=== PATIENT | male | born 2000 | race Caucasian/White ===

== ENCOUNTER 2024-12-19 22:38 | Inpatient (IN) | payer OTHER, SELFPAY ==
[2024-12-19 18:37] VITALS: BP 129/89
--- NOTE | 2024-12-19 19:48 | ED.GENMED ---
History of Present Illness
General
Chief Complaint: Visual Problem
Time Seen by Provider: 12/19/24 19:48
History of Present Illness
History of Present Illness:
TIME OF INITIAL ENCOUNTER: 7:30 PM
HPI: Patient presents with painless loss of vision of the right eye 27 hours ago and was sent by a retina specialist in [place] to the ER for profound vision loss to the right eye. His mother has history of MS/optic neuritis. He was sent here
for further evaluation for the possibility of optic neuritis.
EXAM:
GENERAL: Well appearing in no distress
HEENT: Moist oral mucosa, right eye is light perception only, both pupils are markedly dilated (patient just had dilated eye exam), no disconjugate gaze
CARDIOVASCULAR: No murmurs, normal heart rate, regular rhythm, No chest wall tenderness
PULMONARY: No respiratory distress, breath sounds are clear and equal
ABDOMEN: Soft with no peritoneal signs, no tenderness
NEUROLOGIC: Excellent strength all extremities, no coordination deficits
PSYCHIATRIC: Appropriate mental status, normal insight and judgement
EXTREMITIES: Nontender, no edema, moves all extremities equally
SKIN: No rash, no lesions
NUMBER AND COMPLEXITY OF PROBLEMS ADDRESSED AT THE ENCOUNTER
� Chronic conditions affecting care: No past medical history
� Acute Exacerbation and/or Progression of Chronic Illness: This is an acute problem
� Differential Diagnosis includes: Central retinal artery occlusion, central retinal venous occlusion, optic neuritis, MS
AMOUNT AND/OR COMPLEXITY OF DATA TO BE REVIEWED AND ANALYZED
� I performed an independent evaluation of and my interpretation is:
EKG:
CT:
X-rays:
Laboratory Studies: Sed rate and CRP are both normal, CBC and chemistries also unremarkable
Other: I reviewed MRI report and also personally viewed images which shows multiple bilateral supra and infratentorial white matter foci of increased signal intensity the largest of which is near the left lateral ventral
� Review of other/old records: No old records available for review in [facility]
� Clinical information was obtained by an independent historian: Spoke to the mother at bedside who had a similar presentation and she was diagnosed with MS
� Prescriptions/Medications Considered but not given:
� Further testing considered but not performed:
RISK OF COMPLICATIONS AND/OR MORBIDITY OR MORTALITY OF PATIENT MANAGEMENT
� Social determinants of health affecting care: Lives at home
� Discussion with other providers: At 8 PM, I notified Dr. Mccain and requested MRI. I also spoke to Dr. Wong who recommends IV Solu-Medrol 1 g; Dr. Peña for admission
� Escalation of care including admission/observation vs risk of discharge considered: MRI is abnormal. He was empirically given high dose steroids as recommended by Dr. Wong.
ANY OTHER UPDATES:
Phy Exam
Physical Exam
Physical Exam:
See HPI
Course
Orders/Labs/Results
Orders:
Orders
12/19/24 Dinner
Regular
At Your Request: Full Participation
12/19/24 20:15
MRI Brain [MR Brain W/o & With Contrast] Urgent
Comment:
Reason For Exam: eval for optic neuritis; I notified Kalyn
Recent pill cam endoscopy?: No
12/19/24 20:24
MethylPREDNISolone. [Solu-Medrol] 1,000 mg 0.9% Sodium Chloride 250 ml [Nss] 250 ml IV NOW
12/19/24 20:33
Basic Metabolic Panel Urgent
CRP [C-Reactive Protein] Urgent
Complete Blood Count/With Diff Urgent
ESR [Erythrocyte Sed Rate] Urgent
12/19/24 22:03
Admit/Transfer Patient As Directed
Co-Sign Provider:
Level of Care: Inpatient admission
Assign to:: Medical/Surgical
Physician / Group: Mariana
Diagnosis: Right eye vision loss
Reason for Hospitalization: right eye vision loss
Expected length of stay greater than two midnights?: Yes
ELOS- Estimated Length of Stay in days: 2
I certify the patient meets the requirements for IP care: Yes
PRN Pain Medication Management As Directed
May give lesser potent ordered pain med per pt: Yes
preference::
Protocol:: Medication orders for pain may be administered in a
manner that supports deferring to patient preference
when the pt is:
- Requesting an ordered lesser potent pain medication.
Least to most potent pain medications are defined
as: acetaminophen < NSAID < tramadol < opioids
(morphine, oxycodone, hydromorphone).
- Requesting a lesser dose of the same medication IF
ORDERED.
- Requesting a less intrusive route of administration
if both routes are prescribed by the provider (PO <
IV).
12/19/24 22:04
Code Status As Directed
Resuscitation Status: Full Code
12/19/24 23:14
Acetaminophen [Tylenol] 650 mg PO Q4HPRN PRN
Docusate W/Senna [Senokot-S] 1 tablet PO BIDPRN PRN
Mag Hydrox/Al Hydrox/Simeth [Maalox] 30 ml PO Q6HPRN PRN
Ondansetron Injectable [Zofran] 4 mg IV Q6HPRN PRN
Oxycodone [Roxicodone] 5 mg PO Q4HPRN PRN
Polyethylene Glycol Powder [Miralax] 17 grams PO DAILYPRN PRN
12/19/24 23:14
NEUROLOGY CONSULT Routine
Consulting Provider: Hamilton Wong
Was physician already notified: Yes
Activity As Directed
Activity Level: As Tolerated
Pneumatic Compression Sleeves As Directed
Type: Knee high
Vital Signs As Directed
Frequency: Per unit guidelines
DX Deep Vein Thrombosis Video Routine
12/20/24 08:00
Cetirizine HCl [Zyrtec] 10 mg PO DAILY
Abnormal Lab Results
12/19/24
20:33
Abs Immat Gran (auto) 0.1 H 10^3/uL
(0-0.05)
Absolute Neuts (auto) 7.0 H 10^3/uL
(1.4-6.5)
Immature Gran % 0.7 H %
(0-0.5)
12/19/24 20:33
12/19/24 20:33
Vital Signs
Initial and Last Documented VS:
Initial Vital Signs
Temp Pulse Resp BP Pulse Ox
36.6 C 92 18 129/89 98
12/19/24 18:37 12/19/24 18:37 12/19/24 18:37 12/19/24 18:37 12/19/24 18:37
Last Documented Vital Signs
Temp Pulse Resp BP Pulse Ox
36.9 C 80 20 123/73 97
12/19/24 23:21 12/19/24 23:21 12/19/24 23:21 12/19/24 23:21 12/19/24 23:21
*Critical Care Note
Total Time (30-74mins, 75-104mins- exclusive of procedures): Not Applicable
ED Attending Note
-
Portions of this chart may have been created with voice recognition software.� Occasional wrong word or��sound alike� substitutions may have occurred due to the inherent limitations of voice recognition software.
Discharge Plan
Departure
Patient Disposition: Admit
Presentation/result/management discussed w/ accepting MD/DO: Hospitalist
Discharge Problem:
Severe vision loss of one eye
Interventions
Interventions:
*Risk Screen - Suicide Last Done: 12/19/24 23:26
*General Assessment Last Done: 12/19/24 20:32
*Neglect/Abuse Screening Last Done: 12/19/24 18:37
*ED- Fall Risk Assessment Last Done: 12/19/24 20:32
*ED COVID-19 Vaccine History Last Done: 12/19/24 23:26
*Nursing Disposition Last Done: 12/19/24 23:15
ED- Neurological Assessment Last Done: 12/19/24 20:32
ED-EENT Assessment Last Done: 12/19/24 20:32
Discharge Date and Time
Discharge Date/Time: 12/19/24 23:15
[2024-12-19 20:32] VITALS: BMI 28.9
[2024-12-19 20:34] VITALS: BP 123/86
[2024-12-19 20:47] LABS: % Basophils 0.8 % (0-2); % Eosinophils 3.1 % (0-6); % Immature Granulocytes 0.7 % (0-0.5); % Lymphocytes 21.8 % (20.5-51.1); % Monocytes 5.6 % (1.7-9.3); Absolute Basophils 0.1 10^3/uL (0-0.2); Absolute Eosinophils 0.3 10^3/uL (0-0.7); Absolute Immature Granulocytes 0.1 10^3/uL (0-0.05); Absolute Lymphocytes 2.3 10^3/uL (1.2-3.4); Absolute Monocytes 0.6 10^3/uL (0.1-0.6); Hematocrit 41.9 % (39.0-52.0); Hemoglobin 14.4 g/dL (13.0-18.0); Mean Corp Hgb Conc. 34.4 g/dL (33.0-37.0); Mean Corpuscular Hgb 29.4 pg (27.0-31.0); Mean Corpuscular Volume 85.5 fL (80.0-94.0); Mean Platelet Volume 10.2 fL (7.4-10.4); Nucleated Red Blood Cells % 0 % (-); Platelet Count 283 10^3/uL (130-400); Red Cell Dist. Width 11.9 % (11.5-14.5); White Blood Cell Count 10.4 10^3/uL (4.8-10.8)
[2024-12-19 20:53] LABS: Erythrocyte Sed Rate 2 mm/hour (0-20)
[2024-12-19 21:01] LABS: Blood Urea Nitrogen 12 mg/dl (9-20); Calcium 9.6 mg/dl (8.4-10.2); Carbon Dioxide 27 mmol/L (22-30); Chloride 107 mmol/L (98-107); Estimated Creatinine Clearance 116 ml/min; Glucose 95 mg/dl (70-99); Potassium 4.1 mmol/L (3.5-5.1); Sodium 143 mmol/L (135-145); eGFR > 60.00
[2024-12-19] MEDS: SOLU-MEDROL 258 MG IV (21:46)
[2024-12-19 21:47] VITALS: BP 138/83
--- NOTE | 2024-12-19 21:54 | HPS.HSE ---
Family Physician
-
Family Physician: * NONE
Chief Complaint
-
Right eye vision loss
History of Present Illness
This is a 24-year-old with no known significant past medical history presenting to the emergency department with right eye vision loss that started on arousal this a.m.
Patient reported that when he arose this a.m. he had a mild headache but otherwise was asymptomatic. When opening his eyes he looks like he right eyelid was covered. There was no vision abnormality in his left eye. He reports that there was no
improvement since then. However currently now he states that there is some mild vision in his right lower peripheral visual field. He denies any numbness or tingling. He denies any facial asymmetry. He denies any weakness. He denies any prior
episodes.
Patient was seen by retinal specialist this afternoon ([facility], Dr. Cami Foley). Noted to have profound loss of vision in the right eye. No acute intraocular pathology. Patient sent for urgent neuroimaging with concern for optic
neuritis.
Mother reports she had history of optic neuritis treated with IV steroids twice.
In the emergency department patient was afebrile, blood pressure was 120/85 with a pulse of 100 and satting 99% on room air. His labs are completely pristine, normal CBC, normal electrolytes, normal BUN and creatinine. ESR and CRP were normal.
Medical History
Past Medical History
Past Medical History: Reports None
Past Surgical History: Reports None
Social History
Tobacco: Non-smoker
Alcohol: Occasional
Drug: None
Personal: Single
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
Family History
Family History: Hypertension
Allergies / Home Medications
Allergies reflects when Allergies were last updated in [email or web address].
Home Medications with original date entered in [email or web address]
Allergy/Medication List:
Allergies
Allergy/AdvReac Type Severity Reaction Status Date / Time
diphenhydramine Allergy passed out Verified 12/19/24 20:23
[From Benadryl]
Home Medications
cetirizine 10 mg tablet (Zyrtec) 10 mg PO DAILY 12/19/24
Review of Systems
-
History Source: Patient
Constitutional: Reports No Symptoms
EENT: Reports No Symptoms
Respiratory: Reports No Symptoms
Cardiac: Reports No Symptoms
Abdomen/GI: Reports No Symptoms
: Reports No Symptoms
Musculoskeletal: Reports No Symptoms
Skin: Reports No Symptoms
Neurological: Reports Other (Right eye vision loss)
Endocrine: Reports No Symptoms
Hematologic/Lymphatic: Reports No Symptoms
Psych: Reports No Symptoms
Physical Exam
Vital Signs
Vital Signs
Temp Pulse Resp BP Pulse Ox
98 F 86 18 138/83 99
12/19/24 18:37 12/19/24 20:41 12/19/24 20:41 12/19/24 21:47 12/19/24 21:47
Physical Exam
General: Well Developed, Well Nourished, No Apparent Distress and Comfortable
HEENT: NormoCephalic, Anicteric, Moist mucous membranes, Atraumatic and Other (Extraocular movements intact and conjugate)
Respiratory: Clear
Cardiac: S1/S2
Breast: Deferred by me
GI: Soft, Non Tender, Non Distended and Normal Bowel Sounds
Rectal: Deferred by Provider
Genito-urinary: Deferred by me
Musculoskeletal: No Clubbing, No Cyanosis and No Edema
Skin: Warm
Neuro: AO x 3, No Motor Deficits and Other (Similar dilation, Afferent pupillary defect on the Right eye. )
Psych: Calm
Laboratory Results
-
12/19/24 20:33
12/19/24 20:33
Data Reviewed
-
Lab Data: Labs Reviewed by me
Old Records: Reviewed
Impression/Plan
-
IMPRESSION:
24 year-old with 1 day history of acute right eye vision loss. No other symptoms. Seen by retinal specialist today with no intraocular pathology. No other focal neurological deficits. Family history of optic neuritis in mother. ESR and CRP are
negative. Rest of his labs are completely normal. MRI is pending.
Given patient's concern for optic neuritis and otherwise generally well status plan is to start IV Solu-Medrol. MRI may have findings that are consistent with MS and that we will support the diagnosis of optic neuritis.
- admit to med/surg
- solumedrol 1g IV now., neurology to write for a toal of about 5 doses
- serial examinations
- serologies, invasive diagnostic testing per neurology
- regular diet
- neurology consultation
DVT PPX - SCDs
Code status - full code
[2024-12-19 22:00] VITALS: BP 132/87
[2024-12-19 23:00] VITALS: BP 117/68
[2024-12-19 23:21] VITALS: BP 123/73; BMI 28.1
--- NOTE | 2024-12-19 23:30 | PTCARENOTE ---
Pt arrived to room 415-01. Pt ambulated from wheelchair to bed. Pt AAOx3, VSS. Pt c/o visual loss right eye. Pt oriented to room, call javed placed within reach.
[2024-12-20 07:41] VITALS: BP 113/73
--- NOTE | 2024-12-20 08:39 | W.PN.HOSP.TC ---
Today's Communication/Plan
-
Continue IV steroid
Assessment / Plan
Assessment / Plan
Impression:
24 year-old with 1 day history of acute right eye vision loss. No other symptoms. Seen by retinal specialist [place] with no intraocular pathology. No other focal neurological deficits. Family history of optic neuritis in mother. ESR and CRP are
negative. Rest of his labs are completely normal.
MRI with and without contrast shows:
Mild white matter leukoaraiosis, without enhancement, as described. Consider multiple sclerosis.
Findings have also been associated with nonspecific gliosis, chronic ischemic change (unlikely given patient age), Lyme disease, vasculitis, migraine headaches.
No MR evidence to suggest optic neuritis.
No acute infarct.
No abnormal enhancement.
Neurology consulted, recommended MRI cervical spine/lumbar/thoracic and consider lumbar puncture.
Assessment/plan:
Acute right eye vision loss.
Concern of optic neuritis.
Negative ESR/CRP.
MRI brain with and without contrast shows:
Mild white matter leukoaraiosis, without enhancement, as described. Consider multiple sclerosis.
Findings have also been associated with nonspecific gliosis, chronic ischemic change (unlikely given patient age), Lyme disease, vasculitis, migraine headaches.
No MR evidence to suggest optic neuritis.
No acute infarct.
No abnormal enhancement.
Neurology consulted, recommended MRI cervical spine/lumbar/thoracic
MRI cervical/thoracic spine showed:
Signal alteration in the left lateral cervical spinal cord at the C3 and C5 levels are considered suspicious for demyelination. No MRI evidence for active demyelination.
No evidence for demyelination of the thoracic spinal cord
Continue steroid as ordered by neurology
Consider lumbar puncture.
CODE STATUS: Full code
DVT prophylaxis: SCDs
Diet: Regular diet
Total time spent on today's encounter was 65 minutes which included time spent in counseling the patient/family regarding diagnosis and treatment plan as listed above, goals of care, and symptom management. Case was discussed with nursing staff,
specialists, and care coordinators/case management. All labs and imaging personally reviewed by me. Remainder the time spent in detailed review of previous records, lab data, imaging, and other medical provider documentation.
Anticipated Discharge: > 48 hours
Subjective/Interval History
-
Date of Service: December 20, 2024
Patient seen and examined at bedside, parents at bedside.
Patient still having right eye vision loss but otherwise denies any chest pain or shortness of breath, no abdominal pain, no nausea, no vomiting, no diarrhea or constipation.
Objective Data
-
Labs:
Laboratory Results
12/19/24
20:33
WBC 10.4
Hgb 14.4
Hct 41.9
Plt Count 283
Sodium 143
Potassium 4.1
Chloride 107
Carbon Dioxide 27
BUN 12
Creatinine 1.0
Glucose 95
Calcium 9.6
Vital Signs:
Vital Signs
Temp Pulse Resp BP Pulse Ox
98.3 F 68 18 113/73 98
12/20/24 07:41 12/20/24 07:41 12/20/24 07:41 12/20/24 07:41 12/20/24 07:41
Physical Exam
-
General: Well Developed, Well Nourished, No Apparent Distress and Comfortable
HEENT: Normocephalic, Atraumatic, Moist Mucous Membranes, No Ptosis, PERRLA, Nose Appears Normal and Other (Loss of vision right eye)
Respiratory: Clear to Auscultation and Non Labored Respirations
Cardiac: Regular Rhythm and S1/S2
Breast: Deferred by me
GI: Soft, Nontender, Nondistended and Normal Bowel Sounds
Genito-urinary: No Costovertebral Tender
Musculoskeletal: No Clubbing, No Cyanosis and No Edema
Skin: Warm
Neuro: Awake, Alert, Oriented, AO x 3 and No Motor Deficits
Psych: Calm
Data Reviewed
-
Diagnostic Radiology: Image personally visualized and interpreted and Report Reviewed by me
CT Scan: Image personally visualized and interpreted and Report Reviewed by me
Ultrasound: Image personally visualized and interpreted and Report Reviewed by me
MRI: Image personally visualized and interpreted and Report Reviewed by me
Medical Tests (Nuc Med, Echo etc): Image personally visualized and interpreted and Report Reviewed by me
Labs: Labs Reviewed by me
Old Records: Reviewed
--- NOTE | 2024-12-20 10:21 | CON.NEURO ---
Addendum entered and electronically signed by Hamilton Wong MD 12/20/24 15:48:
.
Original Note:
Neuro Assessment/Plan
Assessment
Abrupt change in vision in the right eye:
ddx optic neuritis despite MRI of orbit negative MRI, Multiple Sclerosis (MS), migraine with aura (or ophthalmic migraine)
highly unlikely to be branch retinal artery occlusion for painless visual loss based on age/lack of risk factors
Plan
check MRI of entire spine with and without to determine if sclerosis lesions present and if enhancing
check blood work for possible metabolic mimics for MS
total dosing of methylprednisolone 1 g IV will be 5 doses, patient received 1 dose on 12/19/2024
Consider lumbar puncture if patient does not have enhancing lesions in brain or spine in hopes of determining if oligoclonal bands are present and if so that would meet criteria for dissemination in time which is needed for the diagnosis of
multiple sclerosis
Provide H2 barby
Goal of normoglycemia
Follow blood pressures, goal of normotension
outpatient optical coherent tomography (OCT) with ophthalmology
Occupational therapy evaluation
We will follow
Consultation
Order
Date of Consultation: 12/20/24
Requesting Provider: Hospitalists
Reason for Consult: Loss of vision in right eye
Subjective/Objective
Subjective Data
Date of Service: December 20, 2024
Right handed
Patient presented to this [facility]'s emergency department yesterday evening approximately 24 hours after onset of painless vision loss in the right eye. The patient awoke with mild headache and noted visual loss in the right eye which involved
nearly the entire vision of the right eye with the exception of a crescent shape involving the bottom portion of his visual field. There is no involvement of the left eye. The patient's headache has been intermittent and is not present today
despite an absence of change in visual loss in the right eye. Typical headaches are not involved with photophobia or phonophobia and last for up to 6 hours without requiring medication for therapy.
Patient was subsequently seen after onset of symptoms by a retinologist in [place] at which time it was suggested that there were no abnormalities despite dilated exam. The patient was then instructed to report to this hospital's emergency
department for further evaluation and treatment. While in the emergency department, the patient received a dose of methylprednisolone 1 g IV.
No known modifying factors. No prior episodes which were similar.
Objective Data
Vital Signs
Temp Pulse Resp BP Pulse Ox
36.8 C 68 18 113/73 98
12/20/24 07:41 12/20/24 07:41 12/20/24 07:41 12/20/24 07:41 12/20/24 07:41
Lab Results
12/19/24 20:33
12/19/24 20:33
Sodium 143 mmol/L (135-145) 12/19/24 20:33
Potassium 4.1 mmol/L (3.5-5.1) 12/19/24 20:33
BUN 12 mg/dl (9-20) 12/19/24 20:33
Glucose 95 mg/dl (70-99) 12/19/24 20:33
Calcium 9.6 mg/dl (8.4-10.2) 12/19/24 20:33
Patient Allergies
diphenhydramine [From Benadryl] Allergy (Verified 12/19/24 20:23)
passed out
Review of Systems
-
History Source: Patient
All other systems: Reviewed and negative
EENT: Decreased Vision; Negative Swallowing Difficulty
Respiratory: Negative Trouble Breathing
Cardiac: Negative Chest Pain
Abdomen/GI: Negative Incontinence of Stool
Genitourinary: Negative Incontinence
Musculoskeletal: Negative Back Pain or Neck Pain
Neuro: Negative Dizzy or Headache
Physical Exam
-
General: No Apparent Distress and Appears Stated Age
Eyes: OU Absent Papilledema, Round OU, [place] Conjunctivae and No Ptosis
HEENT: Anicteric and Moist Mucous Membranes
Neck: Full Range of Motion
Respiratory: No Dyspnea
Cardiac: No JVD
GI: Non-distended
Skin: Unremarkable
Extremities: No Clubbing, No Cyanosis and No Edema
Psych: Intact Judgement/Insight
Extended Neurological Exam
Mood & Affect: Mood Unremarkable and Affect Unremarkable
Attention Span & Concentration: Awake, Alert, Interactive and No Difficulty with 2 Step Request
Memory: Unremarkable
Tremor: Hand Tremor Absent and Head Tremor Absent
Speech: Quality Unremarkable and Quantity Unremarkable
Cranial Nerve II: Left Eye: Pupillary Reactivity Unremarkable, Pupillary Size Unremarkable and Visual Garcia Intact
Cranial Nerve II: Right Eye: Pupillary Size Unremarkable, Visual Garcia Reduced (To finger movement evaluation down to [place] shaped area of the right visual field) and Other (Questionable right APD)
Cranial Nerves III, IV, : Extraocular Movement: Extraocular Movement Full in all Directions
Cranial Nerve VII: Facial Symmetry: Normal Facial Symmetry
Cranial Nerve VIII: Hearing: Unremarkable Hearing to Normal Conversational Volume
Cranial Nerves IX, X: Palate Movement: Palate Elevation Symmetric
Cranial Nerve XI: Shoulder Shrug: Unremarkable
Cranial Nerve XII: Tongue Protusion: Midline
Muscle Strength, Overall: Full Throughout
Muscle Bulk & Tone: Bulk Unremarkable and Tone Unremarkable
Pronator Drift: No Drift in Upper Extremities
Deep Tendon Reflexes: Unremarkable Throughout
Cold Sensation: Unremarkable
Vibration Sensation: Testing in Upper Extremities and Unremarkable
Touch Sensation: Unremarkable
Coordination: Axwjdt-[id number]-[id number] Testing Unremarkable
Babinski Sign: Absent Bilaterally
Data Reviewed
-
MRI Head: Report Reviewed and Image Reviewed
MRI Cervical Spine: Image Reviewed
MRI Thoracic Spine: Image Reviewed
MRI Lumbar Spine: Pending
Labs: Ordered, Pending and Report Reviewed
Reviewed with: Physician, Patient and Family
Old Records: Summarized
Medications
-
Active Medications
Generic Name Dose Route Start Last Admin
Trade Name Freq PRN Reason Stop Dose Admin
Acetaminophen 650 mg 12/19/24 23:14
Acetaminophen 325 Mg Tablet PO 01/16/25 23:13
Q4HPRN PRN
mild pain/BRADEN/temp> 100.4F
Al Hydrox/Mg Hydrox/Simethicone 30 ml 12/19/24 23:14
Mag/Al/Simethicone Suspension 30 Ml Cup PO 01/16/25 23:13
Q6HPRN PRN
Heartburn
Cetirizine HCl 10 mg 12/20/24 08:00 12/20/24 08:20
Cetirizine Hcl 10 Mg Tablet PO 01/17/25 07:59 Not Given
DAILY DAMARIS
Methylprednisolone Sodium 258 mls @ 258 mls/hr 12/20/24 10:00
Succinate 1,000 mg/ Sodium IV 12/23/24 09:59
Chloride Q24H DAMARIS
Ondansetron HCl 4 mg 12/19/24 23:14
Ondansetron 4 Mg/2 Ml Vial IV 01/16/25 23:13
Q6HPRN PRN
nausea and vomiting
Oxycodone HCl 5 mg 12/19/24 23:14
Oxycodone 5 Mg Regular Release Tablet PO 01/02/25 23:13
Q4HPRN PRN
moderate pain
Polyethylene Glycol 17 grams 12/19/24 23:14
Polyethylene Glycol Powder 17 Grams Packet PO 01/16/25 23:13
DAILYPRN PRN
constipation
Senna/Docusate Sodium 1 tablet 12/19/24 23:14
Docusate W/Senna (Umu-Colace) Tablet PO 01/16/25 23:13
BIDPRN PRN
constipation
Sodium Chloride 0 flush 12/19/24 23:00
Sodium Chloride 0.9% (Flush) Syringe IV 01/16/25 22:59
PER PROTOCOL DAMARIS
Home Medications
�Medication �Instructions �Recorded
cetirizine 10 mg tablet (Zyrtec) 10 mg PO DAILY Allergies 12/19/24
Past History
Past History
ED Past Medical History: None
ED Past Surgical History: None
Social History
Tobacco: Non-smoker
Alcohol: None
Personal: Single
Family History
Family History: Other (Mother with history of multiple sclerosis)
[2024-12-20 10:49] LABS: Vitamin D, 25-OH*** 26.9 ng/mL (30-80)
[2024-12-20 11:02] LABS: Ferritin 82.9 ng/ml (17.9-464.0)
[2024-12-20 11:34] LABS: Folate 8.3 ng/ml (2.76-20); Vitamin B12 298 pg/ml (239-931)
[2024-12-20] MEDS: SOLU-MEDROL 258 MG IV (11:47)
[2024-12-20 13:23] LABS: Lyme Antibody Screen, EIA Negative (Negative)
[2024-12-20 14:03] LABS: INR 1.08; PT 14.5 Sec (11.4-14.6)
--- NOTE | 2024-12-20 14:40 | CM ---
Patient seen bedside, initial assessment completed. Patient is a 24-year-old with no known significant past medical history presenting to the emergency department with right eye vision loss.
Patient resides w/ parents in a single story home- 5 steps to enter. Independent w/ ambulating and ADLs, no DME.
Address, point of contact and insurance verified. Patient confirms he has nooked, does not have insurance card w/ him.
PCP: Patient does not have a current PCP, per patient he doesn't get seen annually so he is no longer a patient w/ his prev PCP. Patient agreeable to residency clinic information, CM provided.
Pharmacy: [facility] [place]
Plan: Home, no needs
[2024-12-20 15:31] VITALS: BP 111/73
[2024-12-20] MEDS: DRISDOL (VITAMIN D2) 50000 UNITS PO (17:31)
[2024-12-20] MEDS: VITAMIN B-12 1000 MCG PO (17:31)
[2024-12-20 23:15] VITALS: BP 111/71
[2024-12-21 07:00] VITALS: BP 104/66
--- NOTE | 2024-12-21 07:30 | W.PN.NEURO.1 ---
Today's Communication / Plan
-
Await blood work for possible metabolic mimics for MS
Check lumbar puncture for clarity regarding the possibility of multiple sclerosis, reviewed with patient and family
total dosing of methylprednisolone 1 g IV will be 5 doses, patient received first dose on 12/19/2024
Neuro Assessment/Plan
Assessment
Abrupt change in vision in the right eye:
ddx optic neuritis despite MRI of orbit negative MRI, Multiple Sclerosis (MS) especially suggested based on demyelinating lesions at C3 and C5 although not enhancing
highly unlikely to be branch retinal artery occlusion for painless visual loss based on age/lack of risk factors
Additional diagnoses of vitamin B12 deficiency and vitamin D deficiency
Plan
Await blood work for possible metabolic mimics for MS
Check lumbar puncture for clarity regarding the possibility of multiple sclerosis, reviewed with patient and family
total dosing of methylprednisolone 1 g IV will be 5 doses, patient received first dose on 12/19/2024
Continue newly initiated cyanocobalamin replacement, lifelong with 1000 mcg daily
Vitamin D replacement with both vitamin D2 50,000 units weekly for total of 8 doses and vitamin D3 2000 international units daily, lifelong
Goal of normoglycemia
Follow blood pressures, goal of normotension
outpatient optical coherent tomography (OCT) with ophthalmology
Occupational therapy evaluation
We will follow
Subjective/Objective
Subjective Data
Date of Service: December 21, 2024
Vision is worse in the right since last night.
Objective Data
Vital Signs
Temp Pulse Resp BP Pulse Ox
36.9 C 86 20 111/71 96
12/20/24 23:15 12/20/24 23:15 12/20/24 23:15 12/20/24 23:15 12/20/24 23:15
PT 14.5 Sec (11.4-14.6) 12/20/24 13:46
INR 1.08 12/20/24 13:46
Sodium 143 mmol/L (135-145) 12/19/24 20:33
Potassium 4.1 mmol/L (3.5-5.1) 12/19/24 20:33
BUN 12 mg/dl (9-20) 12/19/24 20:33
Glucose 95 mg/dl (70-99) 12/19/24 20:33
Calcium 9.6 mg/dl (8.4-10.2) 12/19/24 20:33
Vitamin B12 298 pg/ml (239-931) 12/20/24 08:29
Patient Allergies
diphenhydramine [From Benadryl] Allergy (Verified 12/19/24 20:23)
passed out
Review of Systems
-
History Source: Patient
All other systems: Reviewed and negative
EENT: Decreased Vision; Negative Swallowing Difficulty
Respiratory: Negative Trouble Breathing
Cardiac: Negative Chest Pain
Abdomen/GI: Constipated; Negative Incontinence of Stool
Genitourinary: Negative Incontinence
Musculoskeletal: Negative Back Pain or Neck Pain
Neuro: Negative Dizzy or Headache
Physical Exam
-
General: No Apparent Distress and Appears Stated Age
Eyes: Round OU, [place] Conjunctivae and No Ptosis
HEENT: Anicteric and Moist Mucous Membranes
Neck: Full Range of Motion
Respiratory: No Dyspnea
Cardiac: No JVD
GI: Non-distended
Skin: Unremarkable
Extremities: No Clubbing, No Cyanosis and No Edema
Psych: Intact Judgement/Insight
Extended Neurological Exam
Mood & Affect: Mood Unremarkable and Affect Unremarkable
Attention Span & Concentration: Awake, Alert and Interactive
Memory: Unremarkable
Tremor: Hand Tremor Absent and Head Tremor Absent
Speech: Quality Unremarkable and Quantity Unremarkable
Cranial Nerve II: Left Eye: Pupillary Reactivity Unremarkable, Pupillary Size Unremarkable and Visual Garcia Grossly Intact
Cranial Nerve II: Right Eye: Pupillary Size Unremarkable and No Vision; Negative Pupillary Reactivity Unremarkable (Question of APD)
Cranial Nerves III, IV, : Extraocular Movement: Extraocular Movement Full in all Directions
Cranial Nerve VII: Facial Symmetry: Normal Facial Symmetry
Cranial Nerve VIII: Hearing: Unremarkable Hearing to Normal Conversational Volume
Cranial Nerves IX, X: Palate Movement: Palate Elevation Symmetric
Cranial Nerve XI: Shoulder Shrug: Unremarkable
Cranial Nerve XII: Tongue Protusion: Midline
Muscle Bulk & Tone: Bulk Unremarkable and Tone Unremarkable
Pronator Drift: No Drift in Upper Extremities
Touch Sensation: Unremarkable
Coordination: [id number] Testing Unremarkable
Data Reviewed
-
MRI Head: Report Reviewed and Image Reviewed
MRI Cervical Spine: Report Reviewed and Image Reviewed
MRI Thoracic Spine: Report Reviewed and Image Reviewed
MRI Lumbar Spine: Report Reviewed
Labs: Pending and Report Reviewed
Reviewed with: Physician, Patient and Family
Old Records: Summarized
Past History
Past History
ED Past Medical History: Other (Lyme disease age 8)
ED Past Surgical History: None
Social History
Tobacco: Non-smoker
Alcohol: None
Personal: Single
Employment: Employed
Family History
Family History: Other (Mother with history of multiple sclerosis)
Medications
-
Medications:
Generic Name Dose Route Start Last Admin
Trade Name Freq PRN Reason Stop Dose Admin
Acetaminophen 650 mg 12/19/24 23:14
Acetaminophen 325 Mg Tablet PO 01/16/25 23:13
Q4HPRN PRN
mild pain/BRADEN/temp> 100.4F
Al Hydrox/Mg Hydrox/Simethicone 30 ml 12/19/24 23:14
Mag/Al/Simethicone Suspension 30 Ml Cup PO 01/16/25 23:13
Q6HPRN PRN
Heartburn
Cetirizine HCl 10 mg 12/20/24 08:00 12/21/24 10:55
Cetirizine Hcl 10 Mg Tablet PO 01/17/25 07:59 Not Given
DAILY DAMARIS
Cholecalciferol 125 mcg 12/21/24 08:00 12/21/24 10:58
Cholecalciferol (Vitamin D3) 125 Mcg Tablet (5,000 Units) PO 01/18/25 07:59 125 mcg
DAILY DAMARIS Administration
Cyanocobalamin 1,000 mcg 12/20/24 17:00 12/21/24 10:58
Cyanocobalamin 1,000 Mcg Tablet PO 01/17/25 16:59 1,000 mcg
DAILY DAMARIS Administration
Ergocalciferol 50,000 units 12/20/24 17:00 12/20/24 17:31
Ergocalciferol (Vitamin D-2) 67407 Units Capsule PO 01/17/25 16:59 50,000 units
Q7D DAMARIS Administration
Methylprednisolone Sodium 258 mls @ 258 mls/hr 12/20/24 10:00 12/21/24 10:58
Succinate 1,000 mg/ Sodium IV 12/23/24 09:59 258 mls
Chloride Q24H DAMARIS Administration
Lorazepam 1 mg 12/21/24 07:33
Lorazepam 1 Mg Tablet PO
ONCE PRN
SEE LABEL COMMENTS
Ondansetron HCl 4 mg 12/19/24 23:14
Ondansetron 4 Mg/2 Ml Vial IV 01/16/25 23:13
Q6HPRN PRN
nausea and vomiting
Polyethylene Glycol 17 grams 12/19/24 23:14
Polyethylene Glycol Powder 17 Grams Packet PO 01/16/25 23:13
DAILYPRN PRN
constipation
Senna/Docusate Sodium 1 tablet 12/21/24 14:53
Docusate W/Senna (Umu-Colace) Tablet PO 01/16/25 23:13
BIDPRN PRN
no BM > 24 hours
Sodium Chloride 0 flush 12/19/24 23:00
Sodium Chloride 0.9% (Flush) Syringe IV 01/16/25 22:59
PER PROTOCOL DAMARIS
[2024-12-21 08:36] LABS: Hematocrit 38.3 % (39.0-52.0); Hemoglobin 13.3 g/dL (13.0-18.0); Mean Corp Hgb Conc. 34.7 g/dL (33.0-37.0); Mean Corpuscular Hgb 29.4 pg (27.0-31.0); Mean Corpuscular Volume 84.7 fL (80.0-94.0); Mean Platelet Volume 11.4 fL (7.4-10.4); Platelet Count 272 10^3/uL (130-400); Red Blood Cell Count 4.52 10^6/uL (4.70-6.10); Red Cell Dist. Width 11.9 % (11.5-14.5); White Blood Cell Count 21.6 10^3/uL (4.8-10.8)
[2024-12-21 10:31] LABS: Blood Urea Nitrogen 14 mg/dl (9-20); Calcium 9.4 mg/dl (8.4-10.2); Carbon Dioxide 21 mmol/L (22-30); Chloride 105 mmol/L (98-107); Estimated Creatinine Clearance > 125 ml/min; Glucose 129 mg/dl (70-99); Potassium 4.3 mmol/L (3.5-5.1); Sodium 140 mmol/L (135-145); eGFR > 60.00
[2024-12-21] MEDS: VITAMIN D3 (cholecalciferol) 125 MCG PO (10:58)
[2024-12-21] MEDS: VITAMIN B-12 1000 MCG PO (10:58)
[2024-12-21] MEDS: SOLU-MEDROL 258 MG IV (10:58)
--- NOTE | 2024-12-21 11:53 | W.PN.HOSP.TC ---
Today's Communication/Plan
-
Continue IV steroid
Assessment / Plan
Assessment / Plan
Impression:
24 year-old with 1 day history of acute right eye vision loss. No other symptoms. Seen by retinal specialist at [place] with no intraocular pathology. No other focal neurological deficits. Family history of optic neuritis in mother. ESR and CRP are
negative. Rest of his labs are completely normal.
MRI with and without contrast shows:
Mild white matter leukoaraiosis, without enhancement, as described. Consider multiple sclerosis.
Findings have also been associated with nonspecific gliosis, chronic ischemic change (unlikely given patient age), Lyme disease, vasculitis, migraine headaches.
No MR evidence to suggest optic neuritis.
No acute infarct.
No abnormal enhancement.
Neurology consulted, recommended MRI cervical spine/lumbar/thoracic and consider lumbar puncture.MRI cervical/thoracic spine showed:
Signal alteration in the left lateral cervical spinal cord at the C3 and C5 levels are considered suspicious for demyelination. No MRI evidence for active demyelination.
No evidence for demyelination of the thoracic spinal cord
MRI lumbar spine showed There is no abnormal enhancement within the lumbar spine. No significant spinal canal or neuroforaminal narrowing.
Continue steroid as ordered by neurology
lumbar puncture ordered
Assessment/plan:
Acute right eye vision loss.
Concern of optic neuritis.
Negative ESR/CRP.
MRI brain with and without contrast shows:
Mild white matter leukoaraiosis, without enhancement, as described. Consider multiple sclerosis.
Findings have also been associated with nonspecific gliosis, chronic ischemic change (unlikely given patient age), Lyme disease, vasculitis, migraine headaches.
No MR evidence to suggest optic neuritis.
No acute infarct.
No abnormal enhancement.
Neurology consulted, recommended MRI cervical spine/lumbar/thoracic
MRI cervical/thoracic spine showed:
Signal alteration in the left lateral cervical spinal cord at the C3 and C5 levels are considered suspicious for demyelination. No MRI evidence for active demyelination.
No evidence for demyelination of the thoracic spinal cord
MRI lumbar spine showed There is no abnormal enhancement within the lumbar spine. No significant spinal canal or neuroforaminal narrowing.
Continue steroid as ordered by neurology
Lumbar puncture ordered.
CODE STATUS: Full code
DVT prophylaxis: SCDs
Diet: Regular diet
Total time spent on today's encounter was 65 minutes which included time spent in counseling the patient/family regarding diagnosis and treatment plan as listed above, goals of care, and symptom management. Case was discussed with nursing staff,
specialists, and care coordinators/case management. All labs and imaging personally reviewed by me. Remainder the time spent in detailed review of previous records, lab data, imaging, and other medical provider documentation.
Anticipated Discharge: > 48 hours
Subjective/Interval History
-
Date of Service: December 21, 2024
Patient seen and examined at bedside, still with right-sided vision loss , denies any chest pain or shortness of breath, no abdominal pain, no nausea, no vomiting, no diarrhea or constipation.
Objective Data
-
Labs:
Laboratory Results
12/21/24
07:04
WBC 21.6 H
Hgb 13.3
Hct 38.3 L
Plt Count 272
Sodium 140
Potassium 4.3
Chloride 105
Carbon Dioxide 21 L
BUN 14
Creatinine 0.8
Glucose 129 H
Calcium 9.4
Vital Signs:
Vital Signs
Temp Pulse Resp BP Pulse Ox
98 F 74 19 104/66 95
12/21/24 07:00 12/21/24 07:00 12/21/24 07:00 12/21/24 07:00 12/21/24 07:00
I&O
12/20/24 12/21/24 12/22/24
06:59 06:59 06:59
Intake Total 1210 / 1690 480 / 480
Balance 1210 / 1690 480 / 480
Physical Exam
-
General: Well Developed, Well Nourished, No Apparent Distress and Comfortable
HEENT: Normocephalic, Atraumatic, Moist Mucous Membranes, No Ptosis, PERRLA, Nose Appears Normal and Other (Loss of vision right eye)
Respiratory: Clear to Auscultation and Non Labored Respirations
Cardiac: Regular Rhythm and S1/S2
Breast: Deferred by me
GI: Soft, Nontender, Nondistended and Normal Bowel Sounds
Genito-urinary: No Costovertebral Tender
Musculoskeletal: No Clubbing, No Cyanosis and No Edema
Skin: Warm
Neuro: Awake, Alert, Oriented, AO x 3 and No Motor Deficits
Psych: Calm
Data Reviewed
-
Diagnostic Radiology: Image personally visualized and interpreted and Report Reviewed by me
CT Scan: Image personally visualized and interpreted and Report Reviewed by me
Ultrasound: Image personally visualized and interpreted and Report Reviewed by me
MRI: Image personally visualized and interpreted and Report Reviewed by me
Medical Tests (Nuc Med, Echo etc): Image personally visualized and interpreted and Report Reviewed by me
Labs: Labs Reviewed by me
Old Records: Reviewed
[2024-12-21 13:10] VITALS: BP 122/73; BP_SYST 84
[2024-12-21 14:18] VITALS: BP 123/66
[2024-12-21 15:03] LABS: CSF Clarity Clear; CSF Color Colorless; CSF Tube # 1; Red Cell Count/CSF 1 mm^3
[2024-12-21 15:04] LABS: Spinal Fluid Lymphocytes 85 %; Spinal Fluid Macrophages 15 %; White Cell Count/CSF 25 mm^3 (0-5)
[2024-12-21 15:05] LABS: CSF Color Colorless; CSF Lymphocytes 79 %; CSF Tube # 4; CSF Tube # Clarity Clear; Red Cell Count/CSF 15 mm^3; Spinal Fluid Macrophages 21 %; White Blood Cell Count/CSF 21 mm^3 (0-5)
[2024-12-21] MEDS: MAALOX 30 ML PO (15:24)
[2024-12-21 15:30] VITALS: BP 116/74
[2024-12-21 16:48] LABS: Spinal Fluid Glucose 104 mg/dl (40-70); Spinal Fluid Protein 85 mg/dl (12-60)
[2024-12-21 23:39] VITALS: BP 106/59
[2024-12-22 03:15] LABS: ANA, IgG Reflex to HEp-2 None Detected (None Detected)
[2024-12-22] MEDS: SENOKOT-S 1 TABLET PO ×2 (05:47→20:06)
[2024-12-22] MEDS: MAALOX 30 ML PO ×2 (05:47→11:02)
[2024-12-22 07:00] VITALS: BP 115/73
[2024-12-22 07:14] LABS: Hematocrit 39.6 % (39.0-52.0); Hemoglobin 13.8 g/dL (13.0-18.0); Mean Corp Hgb Conc. 34.8 g/dL (33.0-37.0); Mean Corpuscular Hgb 29.5 pg (27.0-31.0); Mean Corpuscular Volume 84.6 fL (80.0-94.0); Mean Platelet Volume 11.2 fL (7.4-10.4); Platelet Count 263 10^3/uL (130-400); Red Blood Cell Count 4.68 10^6/uL (4.70-6.10); Red Cell Dist. Width 11.9 % (11.5-14.5)
[2024-12-22 07:38] LABS: Blood Urea Nitrogen 18 mg/dl (9-20); Calcium 9.1 mg/dl (8.4-10.2); Carbon Dioxide 24 mmol/L (22-30); Chloride 105 mmol/L (98-107); Estimated Creatinine Clearance > 125 ml/min; Glucose 118 mg/dl (70-99); Sodium 140 mmol/L (135-145); eGFR > 60.00
[2024-12-22 09:06] LABS: SSA 52 (Ro)(ENA) Ab, IgG 1 AU/mL (0-40); SSA 60 (Ro)(ENA) Ab, IgG 0 AU/mL (0-40); SSB (La)(ENA) Ab, IgG 1 AU/mL (0-40)
[2024-12-22] MEDS: VITAMIN B-12 1000 MCG PO (09:31)
[2024-12-22] MEDS: VITAMIN D3 (cholecalciferol) 125 MCG PO (09:31)
[2024-12-22] MEDS: SOLU-MEDROL 258 MG IV (09:32)
--- NOTE | 2024-12-22 09:33 | W.PN.NEURO.1 ---
Today's Communication / Plan
-
Await blood work for possible metabolic mimics for MS
total dosing of methylprednisolone 1 g IV will be 5 doses, patient received first dose on 12/19/2024
Continue newly initiated cyanocobalamin replacement, lifelong with 1000 mcg daily
Vitamin D replacement with both vitamin D2 50,000 units weekly for total of 8 doses and vitamin D3 2000 international units daily, lifelong
Goal of normoglycemia
Follow blood pressures, goal of normotension
outpatient optical coherent tomography (OCT) with ophthalmology
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
Occupational therapy evaluation
Neuro Assessment/Plan
Assessment
Abrupt change in vision in the right eye:
ddx optic neuritis despite MRI of orbit negative MRI, Multiple Sclerosis (MS) especially suggested based on demyelinating lesions at C3 and C5 although not enhancing
highly unlikely to be branch retinal artery occlusion for painless visual loss based on age/lack of risk factors
Additional diagnoses of vitamin B12 deficiency and vitamin D deficiency
Performed lumbar puncture for clarity regarding the possibility of multiple sclerosis, elevated WBCs, protein, glucose
Plan
Await blood work for possible metabolic mimics for MS
total dosing of methylprednisolone 1 g IV will be 5 doses, patient received first dose on 12/19/2024
Continue newly initiated cyanocobalamin replacement, lifelong with 1000 mcg daily
Vitamin D replacement with both vitamin D2 50,000 units weekly for total of 8 doses and vitamin D3 2000 international units daily, lifelong
Goal of normoglycemia
Follow blood pressures, goal of normotension
outpatient optical coherent tomography (OCT) with ophthalmology
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
Occupational therapy evaluation
We will follow
Subjective/Objective
Subjective Data
Date of Service: December 22, 2024
Objective Data
Vital Signs
Temp Pulse Resp BP Pulse Ox
36.6 C 70 18 115/73 98
12/22/24 07:00 12/22/24 07:00 12/22/24 07:00 12/22/24 07:00 12/22/24 07:00
Lab Results
12/22/24 06:08
12/22/24 06:08
PT 14.5 Sec (11.4-14.6) 12/20/24 13:46
INR 1.08 12/20/24 13:46
Sodium 140 mmol/L (135-145) 12/22/24 06:08
Potassium 4.0 mmol/L (3.5-5.1) 12/22/24 06:08
BUN 18 mg/dl (9-20) 12/22/24 06:08
Glucose 118 mg/dl (70-99) H 12/22/24 06:08
Calcium 9.1 mg/dl (8.4-10.2) 12/22/24 06:08
Vitamin B12 298 pg/ml (239-931) 12/20/24 08:29
Patient Allergies
diphenhydramine [From Benadryl] Allergy (Verified 12/19/24 20:23)
passed out
Review of Systems
-
History Source: Patient
All other systems: Reviewed and negative
EENT: Decreased Vision; Negative Swallowing Difficulty
Respiratory: Negative Trouble Breathing
Cardiac: Negative Chest Pain
Abdomen/GI: Constipated; Negative Incontinence of Stool
Genitourinary: Negative Incontinence
Musculoskeletal: Negative Back Pain or Neck Pain
Neuro: Negative Dizzy or Headache
Physical Exam
-
General: No Apparent Distress and Appears Stated Age
Eyes: Round OU, [place] Conjunctivae and No Ptosis
HEENT: Anicteric and Moist Mucous Membranes
Neck: Full Range of Motion
Respiratory: No Dyspnea
Cardiac: No JVD
GI: Non-distended
Skin: Unremarkable
Extremities: No Clubbing, No Cyanosis and No Edema
Psych: Negative Intact Judgement/Insight
Extended Neurological Exam
Mood & Affect: Mood Unremarkable and Affect Unremarkable
Attention Span & Concentration: Awake, Alert and Interactive
Memory: Unremarkable
Tremor: Hand Tremor Absent and Head Tremor Absent
Speech: Quality Unremarkable and Quantity Unremarkable
Cranial Nerve II: Left Eye: Pupillary Size Unremarkable and Visual Garcia Grossly Intact
Cranial Nerve II: Right Eye: Pupillary Size Unremarkable and Visual Garcia Reduced
Cranial Nerves III, IV, : Extraocular Movement: Extraocular Movement Full in all Directions
Cranial Nerve VII: Facial Symmetry: Normal Facial Symmetry
Cranial Nerve VIII: Hearing: Unremarkable Hearing to Normal Conversational Volume
Muscle Bulk & Tone: Bulk Unremarkable and Tone Unremarkable
Touch Sensation: Unremarkable
Data Reviewed
-
Labs: Pending and Report Reviewed
Reviewed with: Nurse and Patient
Old Records: Summarized
[2024-12-22] MEDS: TYLENOL 650 MG PO ×2 (11:02→21:45)
--- NOTE | 2024-12-22 13:39 | W.PN.HOSP.TC ---
Today's Communication/Plan
-
Possible discharge tomorrow after IV steroid
Assessment / Plan
Assessment / Plan
Impression:
24 year-old with 1 day history of acute right eye vision loss. No other symptoms. Seen by retinal specialist at [place] with no intraocular pathology. No other focal neurological deficits. Family history of optic neuritis in mother. ESR and CRP are
negative. Rest of his labs are completely normal.
MRI with and without contrast shows:
Mild white matter leukoaraiosis, without enhancement, as described. Consider multiple sclerosis.
Findings have also been associated with nonspecific gliosis, chronic ischemic change (unlikely given patient age), Lyme disease, vasculitis, migraine headaches.
No MR evidence to suggest optic neuritis.
No acute infarct.
No abnormal enhancement.
Neurology consulted, recommended MRI cervical spine/lumbar/thoracic and consider lumbar puncture.MRI cervical/thoracic spine showed:
Signal alteration in the left lateral cervical spinal cord at the C3 and C5 levels are considered suspicious for demyelination. No MRI evidence for active demyelination.
No evidence for demyelination of the thoracic spinal cord
MRI lumbar spine showed There is no abnormal enhancement within the lumbar spine. No significant spinal canal or neuroforaminal narrowing.
Continue steroid as ordered by neurology
lumbar puncture performed.
Still pending lumbar puncture fluid studies
Assessment/plan:
Acute right eye vision loss.
Concern of optic neuritis.
Negative ESR/CRP.
MRI brain with and without contrast shows:
Mild white matter leukoaraiosis, without enhancement, as described. Consider multiple sclerosis.
Findings have also been associated with nonspecific gliosis, chronic ischemic change (unlikely given patient age), Lyme disease, vasculitis, migraine headaches.
No MR evidence to suggest optic neuritis.
No acute infarct.
No abnormal enhancement.
Neurology consulted, recommended MRI cervical spine/lumbar/thoracic
MRI cervical/thoracic spine showed:
Signal alteration in the left lateral cervical spinal cord at the C3 and C5 levels are considered suspicious for demyelination. No MRI evidence for active demyelination.
No evidence for demyelination of the thoracic spinal cord
MRI lumbar spine showed There is no abnormal enhancement within the lumbar spine. No significant spinal canal or neuroforaminal narrowing.
Continue steroid as ordered by neurology
lumbar puncture performed.
Still pending lumbar puncture fluid studies.
CODE STATUS: Full code
DVT prophylaxis: SCDs
Diet: Regular diet
Total time spent on today's encounter was 65 minutes which included time spent in counseling the patient/family regarding diagnosis and treatment plan as listed above, goals of care, and symptom management. Case was discussed with nursing staff,
specialists, and care coordinators/case management. All labs and imaging personally reviewed by me. Remainder the time spent in detailed review of previous records, lab data, imaging, and other medical provider documentation.
Anticipated Discharge: Within 24 hours
Subjective/Interval History
-
Date of Service: December 22, 2024
Patient seen and examined at bedside, right eye vision slightly improved, otherwise patient denies any chest pain or shortness of breath, no abdominal pain, no nausea, no vomiting, no diarrhea or constipation.
Objective Data
-
Labs:
Laboratory Results
12/22/24
06:08
WBC 21.0 H
Hgb 13.8
Hct 39.6
Plt Count 263
Sodium 140
Potassium 4.0
Chloride 105
Carbon Dioxide 24
BUN 18
Creatinine 0.8
Glucose 118 H
Calcium 9.1
Vital Signs:
Vital Signs
Temp Pulse Resp BP Pulse Ox
97.8 F 70 18 115/73 98
12/22/24 07:00 12/22/24 07:00 12/22/24 07:00 12/22/24 07:00 12/22/24 07:00
I&O
12/21/24 12/22/24 12/23/24
06:59 06:59 06:59
Intake Total 1210 / 1690 1450 / 1450
Balance 1210 / 1690 1450 / 1450
Physical Exam
-
General: Well Developed, Well Nourished, No Apparent Distress and Comfortable
HEENT: Normocephalic, Atraumatic, Moist Mucous Membranes, No Ptosis, PERRLA, Nose Appears Normal and Other (Loss of vision right eye)
Respiratory: Clear to Auscultation and Non Labored Respirations
Cardiac: Regular Rhythm and S1/S2
Breast: Deferred by me
GI: Soft, Nontender, Nondistended and Normal Bowel Sounds
Genito-urinary: No Costovertebral Tender
Musculoskeletal: No Clubbing, No Cyanosis and No Edema
Skin: Warm
Neuro: Awake, Alert, Oriented, AO x 3 and No Motor Deficits
Psych: Calm
Data Reviewed
-
Diagnostic Radiology: Image personally visualized and interpreted and Report Reviewed by me
CT Scan: Image personally visualized and interpreted and Report Reviewed by me
Ultrasound: Image personally visualized and interpreted and Report Reviewed by me
MRI: Image personally visualized and interpreted and Report Reviewed by me
Medical Tests (Nuc Med, Echo etc): Image personally visualized and interpreted and Report Reviewed by me
Labs: Labs Reviewed by me
Old Records: Reviewed
[2024-12-22 15:00] VITALS: BP 128/78
[2024-12-22 23:19] VITALS: BP 105/59
[2024-12-23] MEDS: MAALOX 30 ML PO (02:49)
[2024-12-23 07:00] VITALS: BP 123/68
[2024-12-23 07:08] LABS: Hematocrit 39.2 % (39.0-52.0); Hemoglobin 13.5 g/dL (13.0-18.0); Mean Corp Hgb Conc. 34.4 g/dL (33.0-37.0); Mean Corpuscular Hgb 29.1 pg (27.0-31.0); Mean Corpuscular Volume 84.5 fL (80.0-94.0); Mean Platelet Volume 11.3 fL (7.4-10.4); Platelet Count 251 10^3/uL (130-400); Red Blood Cell Count 4.64 10^6/uL (4.70-6.10); Red Cell Dist. Width 11.9 % (11.5-14.5); White Blood Cell Count 18.5 10^3/uL (4.8-10.8)
[2024-12-23 07:14] LABS: Blood Urea Nitrogen 15 mg/dl (9-20); Calcium 8.9 mg/dl (8.4-10.2); Carbon Dioxide 27 mmol/L (22-30); Chloride 103 mmol/L (98-107); Estimated Creatinine Clearance > 125 ml/min; Glucose 143 mg/dl (70-99); Potassium 4.1 mmol/L (3.5-5.1); Sodium 139 mmol/L (135-145); eGFR > 60.00
[2024-12-23] MEDS: SENOKOT-S 1 TABLET PO (08:56)
[2024-12-23] MEDS: VITAMIN B-12 1000 MCG PO (08:57)
[2024-12-23] MEDS: MIRALAX 17 GRAMS PO (08:57)
[2024-12-23] MEDS: VITAMIN D3 (cholecalciferol) 125 MCG PO (08:57)
[2024-12-23] MEDS: SOLU-MEDROL 258 MG IV (11:17)
--- NOTE | 2024-12-23 11:22 | W.PN.HOSP.TC ---
Today's Communication/Plan
-
Discharge home today
Assessment / Plan
Assessment / Plan
Impression:
24 year-old with 1 day history of acute right eye vision loss. No other symptoms. Seen by retinal specialist at [place] with no intraocular pathology. No other focal neurological deficits. Family history of optic neuritis in mother. ESR and CRP are
negative. Rest of his labs are completely normal.
MRI with and without contrast shows:
Mild white matter leukoaraiosis, without enhancement, as described. Consider multiple sclerosis.
Findings have also been associated with nonspecific gliosis, chronic ischemic change (unlikely given patient age), Lyme disease, vasculitis, migraine headaches.
No MR evidence to suggest optic neuritis.
No acute infarct.
No abnormal enhancement.
Neurology consulted, recommended MRI cervical spine/lumbar/thoracic and consider lumbar puncture.MRI cervical/thoracic spine showed:
Signal alteration in the left lateral cervical spinal cord at the C3 and C5 levels are considered suspicious for demyelination. No MRI evidence for active demyelination.
No evidence for demyelination of the thoracic spinal cord
MRI lumbar spine showed There is no abnormal enhancement within the lumbar spine. No significant spinal canal or neuroforaminal narrowing.
Continue steroid as ordered by neurology
lumbar puncture performed.
Still pending lumbar puncture fluid studies
Completed 5 days of IV steroid, will be discharged home today
Assessment/plan:
Acute right eye vision loss.
Concern of optic neuritis.
Negative ESR/CRP.
MRI brain with and without contrast shows:
Mild white matter leukoaraiosis, without enhancement, as described. Consider multiple sclerosis.
Findings have also been associated with nonspecific gliosis, chronic ischemic change (unlikely given patient age), Lyme disease, vasculitis, migraine headaches.
No MR evidence to suggest optic neuritis.
No acute infarct.
No abnormal enhancement.
Neurology consulted, recommended MRI cervical spine/lumbar/thoracic
MRI cervical/thoracic spine showed:
Signal alteration in the left lateral cervical spinal cord at the C3 and C5 levels are considered suspicious for demyelination. No MRI evidence for active demyelination.
No evidence for demyelination of the thoracic spinal cord
MRI lumbar spine showed There is no abnormal enhancement within the lumbar spine. No significant spinal canal or neuroforaminal narrowing.
Continue steroid as ordered by neurology
lumbar puncture performed.
Still pending lumbar puncture fluid studies.
5/
Completed 5 days of IV steroid, will be discharged home today
CODE STATUS: Full code
DVT prophylaxis: SCDs
Diet: Regular diet
Total time spent on today's encounter was 65 minutes which included time spent in counseling the patient/family regarding diagnosis and treatment plan as listed above, goals of care, and symptom management. Case was discussed with nursing staff,
specialists, and care coordinators/case management. All labs and imaging personally reviewed by me. Remainder the time spent in detailed review of previous records, lab data, imaging, and other medical provider documentation.
Anticipated Discharge: Today
Subjective/Interval History
-
Date of Service: December 23, 2024
Patient seen and examined at bedside, parents at bedside, right eye vision improved compared to yesterday , denies any chest pain or shortness of breath, no abdominal pain, no nausea, no vomiting, no diarrhea or constipation.
Objective Data
-
Labs:
Laboratory Results
12/23/24
05:43
WBC 18.5 H
Hgb 13.5
Hct 39.2
Plt Count 251
Sodium 139
Potassium 4.1
Chloride 103
Carbon Dioxide 27
BUN 15
Creatinine 0.8
Glucose 143 H
Calcium 8.9
Vital Signs:
Vital Signs
Temp Pulse Resp BP Pulse Ox
98 F 69 17 123/68 98
12/23/24 07:00 12/23/24 07:00 12/23/24 07:00 12/23/24 07:00 12/23/24 07:00
I&O
12/22/24 12/23/24 12/24/24
06:59 06:59 06:59
Intake Total 1450 / 1450 480 / 480
Balance 1450 / 1450 480 / 480
Physical Exam
-
General: Well Developed, Well Nourished, No Apparent Distress and Comfortable
HEENT: Normocephalic, Atraumatic, Moist Mucous Membranes, No Ptosis, PERRLA, Nose Appears Normal and Other (Improved vision right eye)
Respiratory: Clear to Auscultation and Non Labored Respirations
Cardiac: Regular Rhythm and S1/S2
Breast: Deferred by me
GI: Soft, Nontender, Nondistended and Normal Bowel Sounds
Genito-urinary: No Costovertebral Tender
Musculoskeletal: No Clubbing, No Cyanosis and No Edema
Skin: Warm
Neuro: Awake, Alert, Oriented, AO x 3 and No Motor Deficits
Psych: Calm
Data Reviewed
-
Diagnostic Radiology: Image personally visualized and interpreted and Report Reviewed by me
CT Scan: Image personally visualized and interpreted and Report Reviewed by me
Ultrasound: Image personally visualized and interpreted and Report Reviewed by me
MRI: Image personally visualized and interpreted and Report Reviewed by me
Medical Tests (Nuc Med, Echo etc): Image personally visualized and interpreted and Report Reviewed by me
Labs: Labs Reviewed by me
Old Records: Reviewed
--- NOTE | 2024-12-23 11:24 | W.DCSUMMARY ---
Discharge Summary
Discharge Data
Date of Admission: 12/19/24
Date of Discharge: 12/23/24
-
Pending Results: Yes
Additional Pending Results:
Pending CSF fluid studies
Hospital Course
Hospital course
24 year-old with 1 day history of acute right eye vision loss. No other symptoms. Seen by retinal specialist at [place] with no intraocular pathology. No other focal neurological deficits. Family history of optic neuritis in mother. ESR and CRP are
negative. Rest of his labs are completely normal.
MRI with and without contrast shows:
Mild white matter leukoaraiosis, without enhancement, as described. Consider multiple sclerosis.
Findings have also been associated with nonspecific gliosis, chronic ischemic change (unlikely given patient age), Lyme disease, vasculitis, migraine headaches.
No MR evidence to suggest optic neuritis.
No acute infarct.
No abnormal enhancement.
Neurology consulted, recommended MRI cervical spine/lumbar/thoracic and consider lumbar puncture.MRI cervical/thoracic spine showed:
Signal alteration in the left lateral cervical spinal cord at the C3 and C5 levels are considered suspicious for demyelination. No MRI evidence for active demyelination.
No evidence for demyelination of the thoracic spinal cord
MRI lumbar spine showed There is no abnormal enhancement within the lumbar spine. No significant spinal canal or neuroforaminal narrowing.
Continue steroid as ordered by neurology
lumbar puncture performed.
Still pending lumbar puncture fluid studies
Completed 5 days of IV steroid, will be discharged home today
During hospitalization patient was treated from the following
Acute right eye vision loss.
Concern of optic neuritis.
Negative ESR/CRP.
MRI brain with and without contrast shows:
Mild white matter leukoaraiosis, without enhancement, as described. Consider multiple sclerosis.
Findings have also been associated with nonspecific gliosis, chronic ischemic change (unlikely given patient age), Lyme disease, vasculitis, migraine headaches.
No MR evidence to suggest optic neuritis.
No acute infarct.
No abnormal enhancement.
Neurology consulted, recommended MRI cervical spine/lumbar/thoracic
MRI cervical/thoracic spine showed:
Signal alteration in the left lateral cervical spinal cord at the C3 and C5 levels are considered suspicious for demyelination. No MRI evidence for active demyelination.
No evidence for demyelination of the thoracic spinal cord
MRI lumbar spine showed There is no abnormal enhancement within the lumbar spine. No significant spinal canal or neuroforaminal narrowing.
Continue steroid as ordered by neurology
lumbar puncture performed.
Still pending lumbar puncture fluid studies.
12/23
Completed 5 days of IV steroid, will be discharged home today
CODE STATUS: Full code
DVT prophylaxis: SCDs
Diet: Regular diet
Total time spent on today's encounter was 40 minutes which included time spent in counseling the patient/family regarding diagnosis and treatment plan as listed above, goals of care, and symptom management. Case was discussed with nursing staff,
specialists, and care coordinators/case management. All labs and imaging personally reviewed by me. Remainder the time spent in detailed review of previous records, lab data, imaging, and other medical provider documentation.
Anticipated Discharge: Today
Discharge Plan
-
Patient Disposition: Home (Routine Discharge)
Discharge Diagnosis/Procedures: Right-sided vision loss.
Vitamin B12 deficiency
Diet: No restrictions
Activity: No restrictions
Driving Restrictions: Not until seen by your Dr
Other Services: OT
Referrals:
Neuro-ophthalmology, as outpatient [Other]
Hamilton Wong MD [Active] - in less than 1 week
NONE,* [Family Provider] -
Additional Discharge Medication Instructions: outpatient optical coherent tomography (OCT) with ophthalmology
Prescriptions:
New
cyanocobalamin (vitamin B-12) [Vitamin B-12] 1,000 mcg Tablet
1,000 mcg PO DAILY Qty: 30 0RF
ergocalciferol (vitamin D2) [Vitamin D2] 1,250 mcg (50,000 unit) Capsule
50,000 unit PO Q7D Qty: 6 0RF
Continued
cetirizine [Zyrtec] 10 mg Tablet
10 mg PO DAILY
Discharge Orders:
Discharge Patient (As Directed); Ordered 12/23/24
Ordered By: Madie De Oliveira
Discharge Date and Time
Print Language: SWEDISH
[2024-12-24 19:01] LABS: Albumin Index 8.9 ratio (0.0-9.0); Albumin, CSF 38 mg/dL (0-35); Albumin, Serum 4253 mg/dL (3500-5200); CSF IgG Synthesis Rate 16.1 mg/d (<=8.0); CSF IgG/Albumin Ratio 0.19 ratio (0.09-0.25); CSF Oligoclonal Bands Positive (Negative); CSF Oligoclonal Bands Number 14 Bands (0-1); IgG 894 mg/dL (768-1632); IgG, CSF 7.4 mg/dL (0.0-6.0)
[2024-12-25 02:52] LABS: CSF VDRL (T. pallidum) Non Reactive (Non Reactive)
[2024-12-26 19:08] LABS: Myelin Basic Protein, CSF >102.00 ng/mL (0.00-5.50)
== END 2024-12-23 14:10 | disposition home or self-care (01) | DRG 59 ==
LOC: 4 WEST ACU 22:38
PROVIDERS: Radiology Diagnostic Radiology; ADMITTING PHYSICIAN Internal Medicine; ATTENDING PHYSICIAN General Practice; CONSULT PHYSICIAN Psychiatry & Neurology Neurology; EMERGENCY PHYSICIAN Emergency Medicine
PROC: BR191ZZ Fluoroscopy of Lumbar Spine using Low Osmolar Contrast (ICD-10-PCS; 2024-12-21)
PROC: 009Y3ZX Drainage of Lumbar Spinal Cord, Percutaneous Approach, Diagnostic (ICD-10-PCS; 2024-12-21)
DX: G35 Multiple sclerosis (principal); C85.90 Non-Hodgkin lymphoma, unspecified, unspecified site; H54.61 Unqualified visual loss, right eye, normal vision left eye; E53.8 Deficiency of other specified B group vitamins; I10 Essential (primary) hypertension; Z88.8 Allergy status to other drugs, medicaments and biological substances; Z82.0 Family history of epilepsy and other diseases of the nervous system; G43.909 Migraine, unspecified, not intractable, without status migrainosus; I77.6 Arteritis, unspecified
CPT/HCPCS: 62328; 70553; 72156; 72157; 72158; 80048; 82040; 82042; 82306; 82607; 82728; 82746; 82784; 82945; 83873; 83916; 84157; 85025; 85027; 85610; 85652; 86038; 86140; 86235; 86592; 86618; 87015; 87070; 87116; 87205; 88108; 89051; 96361; 96374; 97166; 99285; A9575